=== PATIENT | female | born 2005 | race Caucasian/White ===

== ENCOUNTER 2025-01-23 23:34 | Emergency (ER) | payer OTHER ==
[~2025-01-23] VITALS: Ht 165.1 cm; Wt 54.5 kg
[2025-01-23 23:48] VITALS: BP 102/56; PULSE 74; RESP 18; TEMP 98.7; O2SAT 100
[2025-01-24 00:13] LABS: APPEARANCE,URINE CLEAR (CLEAR); GLUCOSE, URINE (UA) NEGATIVE (NEGATIVE); LEUKOCYTE ESTERASE ,URINE MODERATE (NEGATIVE); NITRATE,URINE NEGATIVE (NEGATIVE); OCCULT BLOOD,URINE MODERATE (NEGATIVE); SPECIFIC GRAVITIY, URINE 1.023 (1.003-1.030)
[2025-01-24 00:22] LABS: SQUAMOUS EPITHELIAL CELL,UR Few /LPF (None Seen)
[2025-01-24 00:23] LABS: OTHER CASTS, URINE WBC CASTS 2+ /LPF (None Seen)
[2025-01-24] MEDS ORDERED: NITR-104 PO (00:39)
[2025-01-24] MEDS: NITROFURANTOIN MONOHYD/M-CRYST 100 MG CAPSULE [MACROBID] PO ONE (00:41)
== END 2025-01-24 00:50 | disposition home or self-care (01) ==
LOC: EMS 23:34
DX: N39.0 Urinary tract infection, site not specified (principal)
CPT/HCPCS: 81001; 87077; 87086; 87186; 99283